=== PATIENT | female | born 1990 | race American Indian/Alaskan Native ===

== ENCOUNTER 2020-07-23 18:25 | Emergency (ER) | payer MEDICAID ==
--- NOTE | 2020-07-23 19:49 | Event Note ---
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 Lezama, ER attending who advised NOT to activate stroke protocol, advised to order labs and CT head This initial assessment/diagnostic orders/clinical plan/treatment(s) is/are subject to change based on patients health status, clinical progression and re- assessment by fellow clinical providers in the ED. Further treatment and workup at subsequent clinical providers discretion. Patient/guardian urged not to elope from the ED as their condition may be serious if not clinically assessed and managed. Initial orders include: cbc, cmp, hcg, UA, CT head
[2020-07-23 21:06] LABS: Basophils % (Auto) 0.2 % (0.0-1.8); Eosinophils % (Auto) 0.2 % (0.0-4.3); Hematocrit 44.1 % (30.3-42.9); Hemoglobin 14.6 gm/dl (10.1-14.3); Lymphocytes % (Auto) 22.7 % (13.4-35.0); Mean Corpuscular HGB Conc 33 % (30-34); Mean Corpuscular Volume 87 fl (79-97); Monocytes # (Auto) 0.3 K/mm3 (0.0-0.8); Monocytes % (Auto) 7.3 % (0.0-7.3); Platelet Count 228 K/mm3 (140-440); Red Blood Count 5.05 M/mm3 (3.65-5.03); Red Cell Distribution Width 13.7 % (13.2-15.2)
[2020-07-23 21:22] LABS: Alanine Aminotransferase 22 units/L (7-56); Albumin 4.4 g/dL (3.9-5); BUN/Creatinine Ratio 11; Blood Urea Nitrogen 8 mg/dL (7-17); Calcium 9.8 mg/dL (8.4-10.2); Hemolysis Index 15
--- NOTE | 2020-07-23 21:27 | Cat Scan Report ---
CT head/brain wo con INDICATION / CLINICAL INFORMATION: 30 years Female; left sided facial numbness, no neuro deficit. TECHNIQUE: Routine CT head without contrast. All CT scans at this location are performed using CT dos e reduction for ALARA by means of automated exposure control. COMPARISON: None. FINDINGS: BRAIN / INTRACRANIAL CONTENTS: No acute hemorrhage, mass effect, midline shift, hydrocephalus, or acu te, large territorial infarct. No signs of significant atrophy or chronic infarct. No significant whi te matter abnormality seen. CRANIOCERVICAL JUNCTION: No significant abnormality. ORBITS: No significant abnormality of visualized orbits. SINUSES / MASTOIDS: No significant abnormality in the visualized paranasal sinuses or mastoid air brina ls. ADDITIONAL FINDINGS: None. IMPRESSION: 1. No focal mass, hemorrhage, hydrocephalus, or acute, large territorial infarct. Signer Name: Rashad Arevalo MD, III Signed: 07/23/2020 9:23 PM Workstation Name: [email or web address]
[2020-07-23 22:22] LABS: Bilirubin,Urine NEG (Negative); Blood,Urine MOD (Negative); Color,Urine Yellow (Yellow); Mucus,Urine FEW /HPF; Protein,Urine <15 mg/dL mg/dL (Negative); Urobilinogen,Urine < 2.0 mg/dL (<2.0)
[2020-07-23 22:28] VITALS: BP 165/94
--- NOTE | 2020-07-23 22:37 | Emergency Department Report ---
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 Patient states that she has had poorly controlled hypertension that she started taking medications for amlodipine 5 mg today about 12 hours ago. Patient states that she went to the urgent care clinic for the elevated blood pressure and was advised to come to the ED for evaluation. Patient denies change in vision, change in speech, facial weakness, tongue paralysis, facial pa ralysis, neck pain, chest pain, shortness of breath, fever, chills, nausea, vomiting, dizziness, syncope, seizures, traumatic injury or fall and headache. MD Complaint: left facial tingling sensations; elevated BP -: Sudden, hour(s) (3) Location: face Radiation: non-radiation Severity scale (0 -10): 0 Consistency: now resolved Improves with: none Worsens with: none Associated Symptoms: denies other symptoms. denies: confusion, chest pain, cough, diaphoresis, fever/chills, headaches, loss of appetite, rash, seizure, shortness of breath, syncope, weakness, other Treatments Prior to Arrival: none - Related Data Previous Rx's Medication Instructions Recorded Last Taken Type Ibuprofen [Motrin] 800 mg PO TID PRN #20 tablet 07/20/13 Unknown Rx Sulfamethoxazole/Trimethoprim 1 each PO BID #20 tablet 07/20/13 Unknown Rx [Bactrim DS] Nitrofurantoin Ward/M-Cryst 100 mg PO Q12HR #14 capsule 08/03/14 Unknown Rx [Macrobid] Phenazopyridine [Pyridium] 200 mg PO TID #9 tablet 08/03/14 Unknown Rx Lisinopril/Hydrochlorothiazide 1 each PO DAILY #30 tablet 07/23/20 Unknown Rx [Zestoretic 10-12.5 mg Tablet] amLODIPine 10 mg PO DAILY #30 tab 07/23/20 Unknown Rx Allergies Allergy/AdvReac Type Severity Reaction Status Date / Time No Known Allergies Allergy Unverified 07/20/13 02:36 ED Review of Systems ROS: Stated complaint: LF SIDE FACIAL NUMB Other details as noted in HPI Constitutional: other (uncontrolled HTN). denies: chills, fever Eyes: denies: eye pain, eye discharge, vision change ENT: other (left facial tingling and numbness). denies: ear pain, throat pain Respiratory: denies: cough, shortness of breath, wheezing Cardiovascular: denies: chest pain, palpitations Endocrine: no symptoms reported Gastrointestinal: denies: abdominal pain, nausea, vomiting, diarrhea Genitourinary: denies: urgency, dysuria, discharge Musculoskeletal: denies: back pain, joint swelling, arthralgia Skin: denies: rash, lesions Neurological: numbness (left facial tingling sensations). denies: headache, weakness, paresthesias, confusion, abnormal gait, vertigo Psychiatric: anxiety. denies: depression Hematological/Lymphatic: denies: easy bleeding, easy bruising ED Past Medical Hx - Past Medical History Previous Medical History?: Yes Hx Hypertension: Yes Hx Psychiatric Treatment: No Additional medical history: DEAF IN LEFT EAR. Bronchitis. Meninigitis - Surgical History Past Surgical History?: No - Social History Smoking Status: Never Smoker Substance Use Type: None - Medications Home Medications: Home Medications Medication Instructions Recorded Confirmed Last Taken Type Ibuprofen [Motrin] 800 mg PO TID PRN #20 tablet 07/20/13 Unknown Rx Sulfamethoxazole/Trimethoprim 1 each PO BID #20 tablet 07/20/13 Unknown Rx [Bactrim DS] Nitrofurantoin Ward/M-Cryst 100 mg PO Q12HR #14 capsule 08/03/14 Unknown Rx [Macrobid] Phenazopyridine [Pyridium] 200 mg PO TID #9 tablet 08/03/14 Unknown Rx Lisinopril/Hydrochlorothiazide 1 each PO DAILY #30 tablet 07/23/20 Unknown Rx [Zestoretic 10-12.5 mg Tablet] amLODIPine 10 mg PO DAILY #30 tab 07/23/20 Unknown Rx ED Physical Exam - General Limitations: Other General appearance: alert, in no apparent distress - Head Head exam: Present: atraumatic, normocephalic, normal inspection - Eye Eye exam: Present: normal appearance, PERRL, EOMI Pupils: Present: normal accommodation - ENT ENT exam: Present: normal exam, normal orophraynx, mucous membranes moist, TM's normal bilaterally, normal external ear exam, other (Chronic baseline left ear deafness) - Neck Neck exam: Present: normal inspection, full ROM - Respiratory Respiratory exam: Present: normal lung sounds bilaterally. Absent: respiratory distress, wheezes, rales, rhonchi, stridor, chest wall tenderness, accessory muscle use, decreased breath sounds, prolonged expiratory - Cardiovascular Cardiovascular Exam: Present: regular rate, normal rhythm, normal heart sounds. Absent: systolic murmur, diastolic murmur, rubs, gallop - GI/Abdominal GI/Abdominal exam: Present: soft, normal bowel sounds. Absent: tenderness, guarding, rebound, hyperactive bowel sounds, hypoactive bowel sounds, organomegaly - Extremities Exam Extremities exam: Present: normal inspection, full ROM, normal capillary refill - Back Exam Back exam: Present: normal inspection, full ROM. Absent: tenderness, CVA tenderness (R), CVA tenderness (L), muscle spasm, paraspinal tenderness, vertebral tenderness - Neurological Exam Neurological exam: Present: alert, oriented X3, CN II-XII intact, normal gait, reflexes normal - Psychiatric Psychiatric exam: Present: normal affect, normal mood, anxious - Skin Skin exam: Present: warm, dry, intact, normal color. Absent: rash ED Course Vital Signs 07/23/20 07/23/20 19:35 22:27 Temperature 98.4 F 98.2 F Pulse Rate 73 87 Respiratory 18 16 Rate Blood Pressure 154/96 165/94 [Left] O2 Sat by Pulse 98 100 Oximetry ED Medical Decision Making - Lab Data Result diagrams: 07/23/20 20:19 07/23/20 20:19 - EKG Data EKG shows normal: sinus rhythm Rate: normal - EKG Data Interpretation: normal EKG 07/23/20 23:18 The EKG shows normal sinus rhythm with a ventricular rate of [address] or T wave abnormalities or pathological Q waves - Radiology Data Radiology results: report reviewed, image reviewed Findings [facility] [address] [place] [address] Cat Scan Report Signed Patient: RITO WING MR#: [id number] : 1990 Acct:[id number] Age/Sex: 30 / F ADM Date: 07/23/20 Loc: ED Attending Dr: Ordering Physician: VIVIANE MORA Date of Service: 07/23/20 Procedure(s): CT head/brain wo con Accession Number(s): [id number] cc: VIVIANE MORA CT head/brain wo con INDICATION / CLINICAL INFORMATION: 30 years Female; left sided facial numbness, no neuro deficit. TECHNIQUE: Routine CT head without contrast. All CT scans at this location are performed using CT dose reduction for ALARA by means of automated exposure control. COMPARISON: None. FINDINGS: BRAIN / INTRACRANIAL CONTENTS: No acute hemorrhage, mass effect, midline shift, hydrocephalus, or acute, large territorial infarct. No signs of significant atrophy or chronic infarct. No significant white matter abnormality seen. CRANIOCERVICAL JUNCTION: No significant abnormality. ORBITS: No significant abnormality of visualized orbits. SINUSES / MASTOIDS: No significant abnormality in the visualized paranasal sinuses or mastoid air cells. ADDITIONAL FINDINGS: None. IMPRESSION: 1. No focal mass, hemorrhage, hydrocephalus, or acute, large territorial infarct. 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 Patient states that she has had poorly controlled hypertension that she started taking medications for amlodipine 5 mg today about 12 hours ago. Patient states that she went to the urgent care clinic for the elevated blood pressure and was advised to come to the ED for evaluation. In the ED, patient is alert and oriented x3 and is not in distress, hypertensive but afebrile in triage. The EKG shows normal sinus rhythm with a ventricular rate of [address] or T wave abnormalities. Head CT scan without contrast showed no acute intracranial abnormalities or hemorrhage. Lab test results were reviewed and are all nonactionable including troponin levels. Physical exam reveals no neurological abnormalities. Patient is resting comfortably in the chair and in no distress. Patient will discharge home and advised to double the dose of the amlodipine to 10 mg daily instead of 5 mg daily. Patient was advised to follow-up with her primary care physician in 2 to 3 days for reevaluation of her blood pressure. Patient was otherwise advised to return to the ED immediately if symptoms get worse. - Differential Diagnosis TIA; Portia palsy; anxiety; Uncontrolled HTN; CVA Critical care attestation.: If time is entered above; I have spent that time in minutes in the direct care of this critically ill patient, excluding procedure time. ED Disposition Clinical Impression: Uncontrolled stage 2 hypertension, Facial tingling sensation Disposition: DC- TO HOME OR SELFCARE Is pt being admited?: No Does the pt Need Aspirin: No Condition: Stable Instructions: Hypertension, Adult, [id number]-[id number]-[id number], Hypertension (ED), Paresthesia Additional Instructions: All lab test results were reviewed and are all nonactionable. The head CT scan without contrast showed no acute intracranial abnormalities or hemorrhage. Prescriptions: amLODIPine 10 mg PO DAILY #30 tab Lisinopril/Hydrochlorothiazide [Zestoretic 10-12.5 mg Tablet] 1 each PO DAILY #30 tablet Referrals: NU MAGANA MD [Staff Physician] - 3-5 Days Time of Disposition: 22:38 Print Language: GREENLANDIC
== END 2020-07-23 23:34 | disposition home or self-care (01) ==
LOC: ED 18:25
DX: I10 Essential (primary) hypertension (principal); R20.2 Paresthesia of skin; Z79.899 Other long term (current) drug therapy
CPT/HCPCS: 36415; 70450; 80053; 81001; 84484; 84703; 85025; 93005

== ENCOUNTER 2022-02-12 11:55 | Emergency (ER) | payer MEDICAID ==
[2022-02-12 12:22] VITALS: BP 173/92
[2022-02-12] MEDS ORDERED: ACETAMINOPHEN 500 MG TAB PO ONE (13:54)
[2022-02-12 14:57] LABS: Basophils % (Auto) 0.5 % (0.0-1.8); Eosinophils % (Auto) 0.4 % (0.0-4.3); Hematocrit 44.7 % (30.3-42.9); Hemoglobin 14.5 gm/dl (10.1-14.3); Lymphocytes # (Auto) 0.9 K/mm3 (1.2-5.4); Mean Corpuscular HGB Conc 32 % (30-34); Mean Corpuscular Volume 86 fl (79-97); Monocytes # (Auto) 0.2 K/mm3 (0.0-0.8); Monocytes % (Auto) 7.5 % (0.0-7.3); Platelet Count 254 K/mm3 (140-440); Red Blood Count 5.23 M/mm3 (3.65-5.03); Red Cell Distribution Width 15.5 % (13.2-15.2)
[2022-02-12 15:10] LABS: Alanine Aminotransferase 23 units/L (7-56); Albumin 4.4 g/dL (3.9-5); BUN/Creatinine Ratio 12; Blood Urea Nitrogen 11 mg/dL (7-17); Calcium 9.9 mg/dL (8.4-10.2); Hemolysis Index 11
--- NOTE | 2022-02-12 16:26 | Ultrasound Report ---
ULTRASOUND PELVIS INDICATION / CLINICAL INFORMATION: pelvic pain. TECHNIQUE: Transabdominal. Duplex Color Doppler used: Yes. COMPARISON: None available FINDINGS: UTERUS: Present. - Appearance (if present): No significant abnormality. - Size in cm (if present): 7.3 x 4.0 x 4.1. - Endometrial Complex (if present): No significant abnormality.. Thickness in cm (if measured) = 1.0 - Mass lesions: None. - Additional findings: None. RIGHT ADNEXA: No significant ovarian cyst or mass. Normal color Doppler blood flow. LEFT ADNEXA: No significant ovarian cyst or mass. Normal color Doppler blood flow. URINARY BLADDER: No significant abnormality. FREE FLUID: None. ADDITIONAL FINDINGS: None. IMPRESSION: 1. No significant abnormality. Signer Name: Lucio Avila MD Signed: 02/12/2022 4:21 PM Workstation Name: [id number]
[2022-02-12 17:03] LABS: Bilirubin,Urine NEG (Negative); Blood,Urine NEG (Negative); Color,Urine Colorless (Yellow); Protein,Urine <15 mg/dL mg/dL (Negative); Urobilinogen,Urine < 2.0 mg/dL (<2.0)
[2022-02-12 17:04] LABS: Mucus,Urine FEW /HPF; RBC,Urine < 1.0 /HPF (0.0-6.0)
--- NOTE | 2022-02-12 18:32 | Cat Scan Report ---
CT ABDOMEN AND PELVIS WITHOUT CONTRAST INDICATION / CLINICAL INFORMATION: RLQ pain. TECHNIQUE: Axial CT images were obtained through the abdomen and pelvis without IV contrast. All CT scans at this location are performed using CT dose reduction for ALARA by means of automated exposure control. COMPARISON: None available. FINDINGS: LOWER CHEST: No significant abnormality. LIVER: No significant abnormality. GALLBLADDER: Nonvisualized. BILE DUCTS: No significant abnormality. PANCREAS: No significant abnormality. SPLEEN: No significant abnormality. ADRENALS: No significant abnormality. RIGHT KIDNEY / URETER: No significant abnormality. LEFT KIDNEY / URETER: No significant abnormality. STOMACH / SMALL BOWEL: No significant abnormality. COLON: No significant abnormality. APPENDIX: Not definitely seen. Seen. No right lower quadrant inflammatory process. PERITONEUM: Trace free fluid. No free air. No fluid collection. LYMPH NODES: No significant adenopathy. VASCULAR STRUCTURES: No significant abnormality. URINARY BLADDER: No significant abnormality. REPRODUCTIVE ORGANS: No significant abnormality. ADDITIONAL FINDINGS: None. SKELETAL SYSTEM: No significant abnormality. IMPRESSION: 1. Negative for obstruction or localized inflammation. 2. Trace pelvic free fluid. Signer Name: Ty Wray MD Signed: 02/12/2022 6:28 PM Workstation Name: [email or web address]
--- NOTE | 2022-02-12 18:51 | Emergency Department Report ---
ED Abdominal Pain HPI - General Chief Complaint: Urogenital-Female Stated Complaint: PELVIC PAIN Source: patient Mode of arrival: Ambulatory Limitations: No Limitations - History of Present Illness Initial Comments: Patient is a nulliparous 31-year-old -Tongan female with no past medical history who presents to the ED with complaint of acute onset persistent diffuse lower abdominal pain that radiates from the suprapubic to left lower quadrant and right lower quadrant area for the last 2 days. Patient states that the pain is constant and persistent. Patient also complains of intermittent nausea and vomiting. Patient denies dysuria, urinary frequency and urgency, vaginal bleeding, vaginal discharge, dyspareunia, low back pain, chest pain or shortness of breath, fever, chills, dizziness, syncope or traumatic injury and heavy lifting. MD Complaint: abdominal pain (Diffuse lower abdominal pain), other (Nausea and vomiting) -: Sudden, days(s) (2) Location: LLQ, RLQ, suprapubic Radiation: LLQ, RLQ, suprapubic Migration to: no migration Severity: severe Severity scale (0 -10): 7 Quality: aching, sharp Consistency: constant Improves With: nothing Worsens With: movement Associated Symptoms: denies other symptoms, nausea, vomiting. denies: diarrhea, fever, chills, dysuria, hematemesis, hematochezia, melena, anorexia, syncope - Related Data Previous Rx's Medication Instructions Recorded Last Taken Type Sulfamethoxazole/Trimethoprim 1 each PO BID #20 tablet 07/20/13 Unknown Rx [Bactrim DS] Nitrofurantoin Zavala/M-Cryst 100 mg PO Q12HR #14 capsule 08/03/14 Unknown Rx [Macrobid] Phenazopyridine [Pyridium] 200 mg PO TID #9 tablet 08/03/14 Unknown Rx Lisinopril/Hydrochlorothiazide 1 each PO DAILY #30 tablet 07/23/20 Unknown Rx [Zestoretic 10-12.5 mg Tablet] amLODIPine 10 mg PO DAILY #30 tab 07/23/20 Unknown Rx Ibuprofen [Motrin 800 MG tab] 800 mg PO TID PRN #30 tablet 02/12/22 Unknown Rx Ondansetron [Zofran Odt] 4 mg PO Q8HR PRN #15 tab.rapdis 02/12/22 Unknown Rx traMADoL [Ultram] 50 mg PO Q6HR PRN #10 tablet 02/12/22 Unknown Rx Allergies Allergy/AdvReac Type Severity Reaction Status Date / Time No Known Allergies Allergy Verified 02/12/22 12:18 ED Review of Systems ROS: Stated complaint: PELVIC PAIN Other details as noted in HPI ED Past Medical Hx - Past Medical History Hx Hypertension: Yes Hx Psychiatric Treatment: No Additional medical history: DEAF IN LEFT EAR. Bronchitis. Meninigitis - Social History Smoking Status: Never Smoker Substance Use Type: None - Medications Home Medications: Home Medications Medication Instructions Recorded Confirmed Last Taken Type Sulfamethoxazole/Trimethoprim 1 each PO BID #20 tablet 07/20/13 Unknown Rx [Bactrim DS] Nitrofurantoin Zavala/M-Cryst 100 mg PO Q12HR #14 capsule 08/03/14 Unknown Rx [Macrobid] Phenazopyridine [Pyridium] 200 mg PO TID #9 tablet 08/03/14 Unknown Rx Lisinopril/Hydrochlorothiazide 1 each PO DAILY #30 tablet 07/23/20 Unknown Rx [Zestoretic 10-12.5 mg Tablet] amLODIPine 10 mg PO DAILY #30 tab 07/23/20 Unknown Rx Ibuprofen [Motrin 800 MG tab] 800 mg PO TID PRN #30 tablet 02/12/22 Unknown Rx Ondansetron [Zofran Odt] 4 mg PO Q8HR PRN #15 tab.rapdis 02/12/22 Unknown Rx traMADoL [Ultram] 50 mg PO Q6HR PRN #10 tablet 02/12/22 Unknown Rx ED Physical Exam - General Limitations: No Limitations ED Course Vital Signs 02/12/22 12:20 Temperature 98 F Pulse Rate 83 Respiratory 18 Rate Blood Pressure 173/92 [Left] O2 Sat by Pulse 100 Oximetry ED Medical Decision Making - Lab Data Result diagrams: 02/12/22 14:29 02/12/22 14:29 - Radiology Data Radiology results: report reviewed, image reviewed [facility] [address] [place] [address] Cat Scan Report Signed Patient: RITO WING MR#: [id number] : 1990 Acct:[id number] Age/Sex: 31 / F ADM Date: 02/12/22 Loc: ED Attending Dr: Ordering Physician: VIVIANE TRONCOSO Date of Service: 02/12/22 Procedure(s): CT abdomen pelvis wo con Accession Number(s): [id number] cc: VIVIANE TRONCOSO CT ABDOMEN AND PELVIS WITHOUT CONTRAST INDICATION / CLINICAL INFORMATION: RLQ pain. TECHNIQUE: Axial CT images were obtained through the abdomen and pelvis without IV contrast. All CT scans at this location are performed using CT dose reduction for ALARA by means of automated exposure control. COMPARISON: None available. FINDINGS: LOWER CHEST: No significant abnormality. LIVER: No significant abnormality. GALLBLADDER: Nonvisualized. BILE DUCTS: No significant abnormality. PANCREAS: No significant abnormality. SPLEEN: No significant abnormality. ADRENALS: No significant abnormality. RIGHT KIDNEY / URETER: No significant abnormality. LEFT KIDNEY / URETER: No significant abnormality. STOMACH / SMALL BOWEL: No significant abnormality. COLON: No significant abnormality. APPENDIX: Not definitely seen. Seen. No right lower quadrant inflammatory process. PERITONEUM: Trace free fluid. No free air. No fluid collection. LYMPH NODES: No significant adenopathy. VASCULAR STRUCTURES: No significant abnormality. URINARY BLADDER: No significant abnormality. REPRODUCTIVE ORGANS: No significant abnormality. ADDITIONAL FINDINGS: None. SKELETAL SYSTEM: No significant abnormality. IMPRESSION: 1. Negative for obstruction or localized inflammation. 2. Trace pelvic free fluid. Signer Name: Ty Wray MD Signed: 02/12/2022 6:28 PM Workstation Name: [id number] Transcribed By: ES Dictated By: Ty Wray MD Electronically Authenticated By: Ty Wray MD Signed Date/Time: 02/12/221827 DD/ 23 TD/TT: [address] [place] [address] Ultrasound Report Signed Patient: RITO WING MR#: [id number] : 1990 Acct:[id number] Age/Sex: 31 / F ADM Date: 02/12/22 Loc: ED Attending Dr: Ordering Physician: VIVIANE TRONCOSO Date of Service: 02/12/22 Procedure(s): US pelvic complete Accession Number(s): [id number] cc: VIVIANE TRONCOSO ULTRASOUND PELVIS INDICATION / CLINICAL INFORMATION: pelvic pain. TECHNIQUE: Transabdominal. Duplex Color Doppler used: Yes. COMPARISON: None available FINDINGS: UTERUS: Present. - Appearance (if present): No significant abnormality. - Size in cm (if present): 7.3 x 4.0 x 4.1. - Endometrial Complex (if present): No significant abnormality.. Thickness in cm (if measured) = 1.0 - Mass lesions: None. - Additional findings: None. RIGHT ADNEXA: No significant ovarian cyst or mass. Normal color Doppler blood flow. LEFT ADNEXA: No significant ovarian cyst or mass. Normal color Doppler blood flow. URINARY BLADDER: No significant abnormality. FREE FLUID: None. ADDITIONAL FINDINGS: None. IMPRESSION: 1. No significant abnormality. Signer Name: Lucio Avila MD Signed: 02/12/2022 4:21 PM Workstation Name: [id number] Transcribed By: BRINA Dictated By: Lucio Avila MD Electronically Authenticated By: Lucio Avila MD Signed Date/Time: 02/12/22 162 DD/ 162 TD/TT: - Differential Diagnosis UTI; ; ovarian; kidney stone; diverticulitis; uterine fibroid Critical care attestation.: If time is entered above; I have spent that time in minutes in the direct care of this critically ill patient, excluding procedure time. ED Disposition Clinical Impression: Acute pelvic pain, female, Bilateral lower abdominal pain Disposition: HOME / SELF CARE / HOMELESS Is pt being admited?: No Does the pt Need Aspirin: No Condition: Stable Instructions: Pelvic Pain, Female, [id number], Abdominal Pain, Adult, [id number] Additional Instructions: All lab test results were reviewed and are all nonactionable. Pelvic ultrasound showed no acute abnormalities. Abdomen pelvis CT scan without contrast showed no acute abnormalities. Therefore take medications with food, drink plenty of fluids, follow-up with your primary care physician in 7 to 10 days for reevaluation. Return to the ED immediately if symptoms get worse. Prescriptions: Ibuprofen [Motrin 800 MG tab] 800 mg PO TID PRN #30 tablet PRN Reason: Pain traMADoL [Ultram] 50 mg PO Q6HR PRN #10 tablet PRN Reason: Pain Ondansetron [Zofran Odt] 4 mg PO Q8HR PRN #15 tab.rapdis PRN Reason: Nausea Referrals: [facility] [Provider Group] - 7-10 days Time of Disposition: 18:51 Print Language: TURKMEN
== END 2022-02-12 19:00 | disposition home or self-care (01) ==
LOC: ED 11:55
DX: R10.2 Pelvic and perineal pain (principal); R10.31 Right lower quadrant pain; R10.32 Left lower quadrant pain; I10 Essential (primary) hypertension; Z79.899 Other long term (current) drug therapy
CPT/HCPCS: 36415; 74176; 76856; 80053; 81001; 83690; 84703; 85025; 99284